=== PATIENT | male | born 1970 | race Asian ===

== ENCOUNTER 2018-08-21 14:38 | Observation (INO) | payer BC ==
[2018-08-21 15:25] LABS: ADD MAN DIFF? NO
[2018-08-21] MEDS: BELLADONNA/PHENOBARBITAL TAB PO (15:31)
[2018-08-21] MEDS: ASPIRIN 81 MG TAB PO (15:31)
[2018-08-21] MEDS: LIDOCAINE/MYLANTA 40 ML BTL PO (15:31)
[2018-08-21] MEDS: ONDANSETRON 4 MG INJ IV (15:31)
[2018-08-21] MEDS: KETOROLAC 15 MG INJ IV (15:31)
[2018-08-21 15:32] LABS: WHITE BLOOD COUNT 5.9 10^3/ul (4.8-10.8)
[2018-08-21 15:32] LABS: BASOPHILS % 0.5 % (0.0-2.0); EOSINOPHILS # 0.1 10^3/ul (0.0-0.5); EOSINOPHILS % 2.4 % (0.0-7.0); HEMOGLOBIN 14.5 g/dl (14.0-18.0); LYMPHOCYTES # 1.4 10^3/ul (0.8-2.9); LYMPHOCYTES % 23.9 % (15.0-51.0); MEAN CORPUSCULAR HEMOGLOBIN 29.5 pg (29.0-33.0); MEAN CORPUSCULAR HGB CONC 33.7 g/dl (32.0-37.0); MEAN CORPUSCULAR VOLUME 87.4 fl (82.0-101.0); MEAN PLATELET VOLUME 8.8 fl (7.4-10.4); MONOCYTE # 0.5 10^3/ul (0.3-0.9); MONOCYTES % 7.6 % (0.0-11.0); NEUTROPHIL # 3.8 10^3/ul (1.6-7.5); NEUTROPHILS % 65.3 % (39.0-77.0); PLATELET COUNT 213 10^3/UL (140-415); RED BLOOD COUNT 4.92 10^6/ul (4.70-6.10); RED CELL DISTRIBUTION WIDTH 12.6 % (11.5-14.5)
[2018-08-21] MEDS: SOD CHLORIDE 0.9% 500 ML IV (15:32)
[2018-08-21 15:51] LABS: ALANINE AMINOTRANSFERASE 60 IU/L (13-69); ALBUMIN 4.8 g/dl (3.3-4.9); ALBUMIN/GLOBULIN RATIO 1.45; ALKALINE PHOSPHATASE 57 IU/L (42-121); ANION GAP 9 (5-13); ASPARTATE AMINO TRANSFERASE 43 IU/L (15-46); BILIRUBIN,INDIRECT 0.3 mg/dl (0-1.1); BILIRUBIN,TOTAL 0.3 mg/dl (0.2-1.3); BLOOD UREA NITROGEN 19 mg/dl (7-20); CARBON DIOXIDE 27 mmol/L (21-31); CHLORIDE 101 mmol/L (97-110); CREATINE KINASE 152 IU/L (23-200); CREATININE 1.01 mg/dl (0.61-1.24); Estimated GFR > 60 mL/min (>60); GLUCOSE 101 mg/dl (70-220); LIPASE 73 U/L (23-300); POTASSIUM 3.8 mmol/L (3.5-5.1); SODIUM 137 mmol/L (135-144); TOTAL PROTEIN 8.1 g/dl (6.1-8.1)
[2018-08-21 15:57] LABS: INR 0.86; PROTIME 11.8 Sec (11.9-14.9); PT RATIO 0.9
[2018-08-21 16:02] LABS: CK INDEX 0.7; CK-MB 1.07 ng/ml (0.0-2.4); TROPONIN-I < 0.012 ng/ml (0.000-0.120)
[2018-08-21] MEDS ORDERED: NACL 0.9% 3 ML SYG IV (17:30)
[2018-08-21] MEDS ORDERED: DOCUSATE SODIUM 100 MG CAP PO (17:30)
[2018-08-21] MEDS ORDERED: morphine 2 MG INJ IV (17:30)
[2018-08-21] MEDS ORDERED: BISACODYL 10 MG SUPP PR (17:30)
[2018-08-21] MEDS ORDERED: MAGNESIUM HYDROXIDE 30ML CUP PO (17:30)
[2018-08-21] MEDS ORDERED: NITROGLYCERIN (SL) 0.4 MG TAB SL (17:30)
[2018-08-21] MEDS ORDERED: ACETAMINOPHEN 325 MG TAB PO (17:30)
[2018-08-21] MEDS ORDERED: ONDANSETRON 4 MG INJ IV (17:30)
[2018-08-21] MEDS: ATORVASTATIN 80 MG TAB PO (21:00)
[2018-08-21] MEDS: FAMOTIDINE 20 MG TAB PO (21:58)
[2018-08-21 22:31] LABS: CREATINE KINASE 130 IU/L (23-200)
[2018-08-21 22:43] LABS: CK INDEX 0.6; CK-MB 0.82 ng/ml (0.0-2.4); TROPONIN-I < 0.012 ng/ml (0.000-0.120)
[2018-08-22 03:52] LABS: ADD MAN DIFF? NO
[2018-08-22 04:06] LABS: HEMOGLOBIN A1C 5.7 % (0-5.9)
[2018-08-22 04:09] LABS: WHITE BLOOD COUNT 4.9 10^3/ul (4.8-10.8)
[2018-08-22 04:09] LABS: BASOPHILS % 0.8 % (0.0-2.0); EOSINOPHILS # 0.1 10^3/ul (0.0-0.5); EOSINOPHILS % 2.1 % (0.0-7.0); HEMATOCRIT 40.5 % (42.0-52.0); HEMOGLOBIN 13.7 g/dl (14.0-18.0); LYMPHOCYTES # 1.5 10^3/ul (0.8-2.9); LYMPHOCYTES % 31.6 % (15.0-51.0); MEAN CORPUSCULAR HEMOGLOBIN 30.4 pg (29.0-33.0); MEAN CORPUSCULAR HGB CONC 33.8 g/dl (32.0-37.0); MEAN CORPUSCULAR VOLUME 89.8 fl (82.0-101.0); MONOCYTE # 0.5 10^3/ul (0.3-0.9); MONOCYTES % 10.3 % (0.0-11.0); NEUTROPHIL # 2.7 10^3/ul (1.6-7.5); NEUTROPHILS % 54.8 % (39.0-77.0); PLATELET COUNT 199 10^3/UL (140-415); RED BLOOD COUNT 4.51 10^6/ul (4.70-6.10); RED CELL DISTRIBUTION WIDTH 12.4 % (11.5-14.5)
[2018-08-22 04:11] LABS: ALANINE AMINOTRANSFERASE 53 IU/L (13-69); ALBUMIN 4.1 g/dl (3.3-4.9); ALBUMIN/GLOBULIN RATIO 1.41; ALKALINE PHOSPHATASE 41 IU/L (42-121); ANION GAP 8 (5-13); ASPARTATE AMINO TRANSFERASE 34 IU/L (15-46); BILIRUBIN,INDIRECT 0.2 mg/dl (0-1.1); BILIRUBIN,TOTAL 0.2 mg/dl (0.2-1.3); BLOOD UREA NITROGEN 23 mg/dl (7-20); CALCIUM 9.2 mg/dl (8.4-10.2); CARBON DIOXIDE 31 mmol/L (21-31); CHLORIDE 100 mmol/L (97-110); CREATININE 1.25 mg/dl (0.61-1.24); Estimated GFR > 60 mL/min (>60); GLUCOSE 100 mg/dl (70-220); MAGNESIUM 2.4 mg/dl (1.7-2.5); POTASSIUM 4.2 mmol/L (3.5-5.1); SODIUM 139 mmol/L (135-144)
[2018-08-22 04:12] LABS: CREATINE KINASE 164 IU/L (23-200)
[2018-08-22 04:13] LABS: CHOL/HDL RATIO 2.6 RATIO; HDL CHOLESTEROL 50 mg/dl (27-67); LDL CHOLESTEROL,CALCULATED 61 mg/dl; TRIGLYCERIDES 98 mg/dl (0-149)
[2018-08-22 04:13] LABS: CHOLESTEROL 131 mg/dl (100-200)
[2018-08-22 04:22] LABS: CK INDEX 0.5; CK-MB 0.74 ng/ml (0.0-2.4); TROPONIN-I < 0.012 ng/ml (0.000-0.120)
[2018-08-22] MEDS: REGADENOSON 0.4 MG/5 ML SYG (10:47)
[2018-08-22] MEDS: ASPIRIN (EC) 81 MG TAB PO (11:48)
[2018-08-22] MEDS: FAMOTIDINE 20 MG TAB PO (11:48)
[2018-08-22] MEDS: CLOPIDOGREL 75 MG TAB PO (11:48)
[2018-08-22] MEDS: LISINOPRIL 5 MG TAB PO (11:49)
== END 2018-08-22 14:55 | disposition home or self-care (01) ==
LOC: E/R 14:38 → 6WM 16:21
DX: R07.89 Other chest pain (principal); R10.13 Epigastric pain; I25.10 Atherosclerotic heart disease of native coronary artery without angina pectoris; I10 Essential (primary) hypertension; E78.5 Hyperlipidemia, unspecified; E78.00 Pure hypercholesterolemia, unspecified; Z95.5 Presence of coronary angioplasty implant and graft; J45.909 Unspecified asthma, uncomplicated; K21.9 Gastro-esophageal reflux disease without esophagitis; Z79.82 Long term (current) use of aspirin
CPT/HCPCS: 36415; 71045; 76700; 78452; 80053; 80061; 82550; 82553; 83036; 83690; 83735; 84484; 85025; 85610; 85730; 93005; 93017; 93306; 96374; 96375; 99285-25; G0378

== ENCOUNTER 2019-01-09 06:27 | Emergency (ER) | payer BC ==
[2019-01-09 06:53] LABS: ADD MAN DIFF? NO
[2019-01-09 06:55] LABS: BASOPHILS % 0.6 % (0.0-2.0); EOSINOPHILS # 0.1 10^3/ul (0.0-0.5); EOSINOPHILS % 2.2 % (0.0-7.0); HEMATOCRIT 42.8 % (42.0-52.0); HEMOGLOBIN 14.9 g/dl (14.0-18.0); LYMPHOCYTES # 1.3 10^3/ul (0.8-2.9); LYMPHOCYTES % 27.1 % (15.0-51.0); MEAN CORPUSCULAR HEMOGLOBIN 29.7 pg (29.0-33.0); MEAN CORPUSCULAR HGB CONC 34.8 g/dl (32.0-37.0); MEAN CORPUSCULAR VOLUME 85.3 fl (82.0-101.0); MEAN PLATELET VOLUME 8.7 fl (7.4-10.4); MONOCYTE # 0.4 10^3/ul (0.3-0.9); MONOCYTES % 8.5 % (0.0-11.0); NEUTROPHILS % 61.2 % (39.0-77.0); PLATELET COUNT 209 10^3/UL (140-415); RED BLOOD COUNT 5.02 10^6/ul (4.70-6.10); RED CELL DISTRIBUTION WIDTH 12.5 % (11.5-14.5)
[2019-01-09 07:11] LABS: ALANINE AMINOTRANSFERASE 58 IU/L (13-69); ALBUMIN 4.7 g/dl (3.3-4.9); ALBUMIN/GLOBULIN RATIO 1.34; ALKALINE PHOSPHATASE 57 IU/L (42-121); ANION GAP 11 (5-13); ASPARTATE AMINO TRANSFERASE 39 IU/L (15-46); BILIRUBIN,INDIRECT 0.6 mg/dl (0-1.1); BILIRUBIN,TOTAL 0.6 mg/dl (0.2-1.3); BLOOD UREA NITROGEN 21 mg/dl (7-20); CALCIUM 9.6 mg/dl (8.4-10.2); CARBON DIOXIDE 27 mmol/L (21-31); CHLORIDE 104 mmol/L (97-110); CREATININE 1.08 mg/dl (0.61-1.24); Estimated GFR > 60 mL/min (>60); GLUCOSE 111 mg/dl (70-220); LIPASE 80 U/L (23-300); POTASSIUM 3.9 mmol/L (3.5-5.1); SODIUM 142 mmol/L (135-144); TOTAL PROTEIN 8.2 g/dl (6.1-8.1)
[2019-01-09 07:24] LABS: TROPONIN-I < 0.012 ng/ml (0.000-0.120)
[2019-01-09] MEDS: SOD CHLORIDE 0.9% 100 ML (07:45)
[2019-01-09] MEDS: IOHEXOL 100 ML (07:45)
[2019-01-09 10:21] LABS: TROPONIN-I < 0.012 ng/ml (0.000-0.120)
== END 2019-01-09 11:00 | disposition home or self-care (01) ==
LOC: E/R 06:27
DX: R07.9 Chest pain, unspecified (principal); J45.909 Unspecified asthma, uncomplicated; I10 Essential (primary) hypertension; R40.2142 Coma scale, eyes open, spontaneous, at arrival to emergency department; R40.2362 Coma scale, best motor response, obeys commands, at arrival to emergency department; R40.2252 Coma scale, best verbal response, oriented, at arrival to emergency department; Z79.82 Long term (current) use of aspirin; Z79.01 Long term (current) use of anticoagulants
CPT/HCPCS: 36415; 71045; 71275; 80053; 83690; 84484; 85025; 93005; 99285-25